=== PATIENT | male | born 1940 | race Caucasian/White ===

== ENCOUNTER → 2016-04-21 | Outpatient (CLI) | payer OTHER ==
--- NOTE | 2016-04-21 16:46 | NM ---
Nuclear Medicine Whole Body Bone Scan Clinical Indications: Left hip pain. Evaluate for loosening. Comparison: Plain radiographs of the hip from April 21, 2016. Technique: 22.1 mCi technetium 99m MDP were injected intravenously. Delayed images of the skeleton were obtained in anterior and posterior projections. Findings: Activity is normally distributed throughout the skeleton. There is no convincing evidence of metastatic disease. Some degenerative changes are noted in the shoulder on the right external manu brial joints, in the elbows, wrists, and knees. There is symmetric increased activity around the tota l hip arthroplasty on the left. This finding can be seen for up to one year post placement. Impression: Symmetric activity around the prosthesis is indeterminate. This prosthesis was placed Fe 2015 and is less than a year old.
--- NOTE | 2016-04-21 16:51 | DX ---
Left Hip, 2 Views Clinical indication: Evaluate for loosening. Comparison: Plain radiograph September 02, 2015, May 27, 2015, bone scan from April 21, 2016. Findings: Left total hip arthroplasty appears in anatomic alignment without evidence of loosening. Davis rgical clips are noted in the pelvis. Moderate degenerative changes are present in the SI joints in t he right hip joint. Impression: No convincing evidence of loosening. Left total hip arthroplasty in anatomic position.
== END ==
LOC: FIMAGING 11:59
PROVIDERS: ATTEND Orthopaedic Surgery
DX: Z96.642 Presence of left artificial hip joint (principal)
CPT/HCPCS: 73502; 78306; A9503

== ENCOUNTER → 2016-05-14 | Day surgery (SDC) | payer OTHER ==
[~2016-05-14] MED LIST: PROPOFOL/EMULSION 500 MG/50 ML BOTTLE IV ONE
[2016-05-14 09:53] VITALS: RESP 16; TEMP 97.5; O2SAT 95
[2016-05-14 10:01] VITALS: BP 154/98; PULSE 61
--- NOTE | 2016-05-14 11:37 | EDPHY ---
H & P Stated Complaint: Needs to have esophageal ring dilated; states unable to swallow fluids Time Seen by Provider: 05/14/16 10:09 - Personal History Current Tetanus Diphtheria and Acellular Pertussis (TDAP): Yes Tetanus Vaccine Date: 2005 - Medical/Surgical History Hx Asthma: No Hx Chronic Respiratory Disease: Yes Hx Diabetes: No Hx Cardiac Disease: No Hx Renal Disease: No Hx Cirrhosis: No Hx Alcoholism: No Hx HIV/AIDS: No Hx Splenectomy or Spleen Trauma: No Other PMH: V tach; TIA; depression;GERD; thyroidectomy; hyperparathyroidism, perennial rhinitis, obstructive sleep apnea; moderate hearing loss, astigmatism ; Lung CA; left lower lung lobectomy; wide aortic valve; Fibrous ring base of esophagus - Social History Smoking Status: Never smoked Constitutional: Initial Vital Signs Temperature (C) 36.4 C 05/14/16 09:46 Heart Rate 62 05/14/16 09:46 Respiratory Rate 16 05/14/16 09:46 Blood Pressure 161/100 H 05/14/16 09:46 O2 Sat (%) 95 05/14/16 09:46 O2 Delivery Mode Room Air Allergies/Adverse Reactions: venom-wasp [Wasp Venom] Allergy (Severe, Verified 05/14/16 09:52) Anaphylaxis Home Medications: Medication Instructions Recorded Clopidogrel Bisulfate [Plavix (*)] 75 mg PO DAILY 11/29/14 Metoprolol Succinate Xr [Toprol Xl 50 mg PO DAILY 11/29/14 50 mg (*)] Omeprazole [Prilosec 20 mg] 20 mg PO HS 11/29/14 Atorvastatin Calcium [Lipitor 20 20 mg PO HS #0 tab 05/18/15 mg (*)] Fluticasone Nasal [Flonase Nasal 2 sprays EACHNARE DAILY #0 mdi 05/18/15 [place]] Levothyroxine [Synthroid 112 mcg 112 mcg PO HS #0 tab 05/18/15 (*)] DULoxetine [Cymbalta 30 MG (*)] 30 mg PO 05/14/16 Medical Decision Making ED Course/Re-evaluation: CHIEF COMPLAINT: Esophageal obstruction HISTORY OF PRESENT ILLNESS: The patient is a 76 y/o male, with a history of Schatzki's ring, complaining of possible esophageal obstruction since dinner last night. He ate tuna and rice last night and within a few hours vomited. He was unable to swallow water throughout the night and unable to eat bread this morning. He has not been able to swallow his saliva since onset. He denies pain , fever, or other complaints. He has required esophageal dilations 3-4 times previously for these symptoms with the most recent in 2010. REVIEW OF SYSTEMS: A 10 point review of systems was performed and is negative with the exception of the elements mentioned in the history of present illness. PHYSICAL EXAM: General Appearance: Alert, well hydrated, appropriate, and non-toxic appearing. Head: Atraumatic without scalp tenderness or obvious injury Eyes: Pupils equal, round, reactive to light and accommodation, EOMI, no trauma , no injection. Ears: Clear bilaterally, no perforation, normal landmarks Nose: Atraumatic, no rhinorrhea, clear. Throat: There is no erythema or exudates, no lesions, normal tonsils, mucus membranes moist. Neck: Supple, 2+ carotid upstroke, non-tender, no lymphadenopathy. Respiratory: No retractions, no distress, no wheezes, and no accessory muscle use. Lungs are clear to auscultation bilaterally. Cardiovascular: Regular rate and rhythm, no murmurs, rubs, or gallops. Bilateral carotid, radial, dorsalis pedis, and posterior tibial pulses intact. Good capillary refill all extremities. Gastrointestinal: Abdomen is soft, non-tender, non-distended, no masses, no rebound, no guarding, no peritoneal signs. Musculoskeletal: Normal active ROM of all extremities, atraumatic. Neurological: Alert, appropriate, and interactive. The patient has normal DTRs and non-focal cranial nerves, motor, sensory, and cerebellar exam. Skin: No rashes, good turgor, no nodules on palpation. PAST MEDICAL HISTORY: Schatzki's ring PAST SURGICAL HISTORY: Multiple esophageal dilations SOCIAL HISTORY: . GI: Dr. Meyer DIFFERENTIAL DIAGNOSIS: The differential diagnosis for the patient's included but was not limited to MEDICAL DECISION MAKING: This is a 76 y/o male with a history of Schatzki's ring presenting with inability to swallow without vomiting for the last 12-18 hours. He has vomited every time he's tried swallowing food or water. He cannot swallow his saliva. He has required dilation previously for these symptoms. Plan to consult his GI, Dr. Meyer. 1030: Consulted with Dr. Meyer, patient's GI. He will evaluate patient in the ED and plans to take him to endoscopy. Departure - Departure Disposition: [facility] Inpatient Acute Clinical Impression: Foreign body in esophagus Qualifiers: Encounter type: initial encounter Qualifier Code: (T18.108A) Unspecified foreign body in esophagus causing other injury, initial encounter Condition: Good Report Scribed for: Juve Diaz Report Scribed by: Yecenia Cantu Date of Report: 05/14/16 Time of Report: 11:37
--- NOTE | 2016-05-14 12:35 | GPN ---
[f rep st] PROCEDURE NOTE PROCEDURE PERFORMED: Gastroscopy with food disimpaction and balloon dilation. INDICATIONS: The patient is a 76-year-old male with history of recurrent food impactions due Schatzk i ring, last dilated in 2010. He is on maintenance Nexium. Last night, swallowed some tuna and rice and felt it impact. It has been unable to be cleared. He presents for emergent endoscopy to disimp act the food and treat as needed. DESCRIPTION OF PROCEDURE: After proper consent was obtained, the patient was placed under general an esthesia with intubation for airway protection. His ASA class was III. Video gastroscope was introduced through the mouth and into the esophagus, where a large amount of fo od was noted. This was gently nudged into the stomach. The esophagus was then washed down, and a Sc hatzki ring was identified. It was approximately 18 mm in diameter. The stomach and duodenum were inspected. They appeared normal. A 20 mm balloon was placed across the ring and dilated maximally with some minimal superficial disrup tion noted. At this point, instrument was removed. The patient tolerated the procedure well, and was returned to recovery in stable condition. IMPRESSION: Schatzki ring with food impaction, however, a large food bolus may have contributed to t his episode. RECOMMENDATIONS: The patient will be on a liquid diet today, advanced as tolerated. He can continue all his other medications. Would repeat the procedure p.r.n. further impactions. /[id number]/MODL
== END | disposition home or self-care (01) ==
LOC: FSGY 11:22
PROVIDERS: ATTEND Internal Medicine Gastroenterology
PROC: 0D758DZ Dilation of Esophagus with Intraluminal Device, Via Natural or Artificial Opening Endoscopic (ICD-10-PCS; principal; 2016-05-14 11:22)
PROC: 0DC58ZZ Extirpation of Matter from Esophagus, Via Natural or Artificial Opening Endoscopic (ICD-10-PCS; principal; 2016-05-14 11:22)
DX: T18.120A Food in esophagus causing compression of trachea, initial encounter (principal); K22.2 Esophageal obstruction
CPT/HCPCS: 43249; 99285; J2704

== ENCOUNTER → 2016-07-11 | Outpatient (CLI) | payer OTHER ==
[~2016-07-11] MED LIST changes: +IOPAMIDOL (ISOVUE-300) 100 ML BTL IV ONE; -PROPOFOL/EMULSION 500 MG/50 ML BOTTLE IV ONE
[2016-07-11 16:33] LABS: CREATININE 0.9 mg/dL (0.7-1.3); GLOMERULAR FILTRATION RATE > 60
== END ==
LOC: FIMAGING 15:36
PROVIDERS: ATTEND Surgery
DX: R91.8 Other nonspecific abnormal finding of lung field (principal); Z85.118 Personal history of other malignant neoplasm of bronchus and lung; I71.2 Thoracic aortic aneurysm, without rupture; K80.20 Calculus of gallbladder without cholecystitis without obstruction; N28.1 Cyst of kidney, acquired
CPT/HCPCS: 71260; Q9967

== ENCOUNTER → 2017-01-08 | Outpatient (CLI) | payer OTHER | LOC: BMCIMAGING 14:41 | PROVIDERS: ATTEND Internal Medicine Endocrinology, Diabetes & Metabolism | DX: Z13.820 Encounter for screening for osteoporosis (principal); M85.89 Other specified disorders of bone density and structure, multiple sites; E21.3 Hyperparathyroidism, unspecified ==

== ENCOUNTER → 2017-09-29 | Outpatient (CLI) | payer OTHER | LOC: BMCIMAGING 12:29 | PROVIDERS: ATTEND Family Medicine | DX: M79.672 Pain in left foot (principal) ==

== ENCOUNTER 2018-01-01 13:09 | Day surgery (SDC) | payer OTHER ==
[2018-01-01] MEDS ORDERED: diphenhydrAMINE 25 MG CAP PO ONE (13:12)
[2018-01-01] MEDS ORDERED: BACITRACIN IRRIGATION/NS 50,000 UNITS/1,000 ML BTL IRR ONE (13:12)
[2018-01-01] MEDS ORDERED: ceFAZolin 2 GM/DEXTROSE 100 ML IV ONE (13:12)
[2018-01-01] MEDS ORDERED: DIAZEPAM 5 MG TAB PO ONE (13:12)
[2018-01-01] MEDS ORDERED: NS 1,000 ML IV ONE (13:12)
[2018-01-01 13:55] LABS: PLATELET COUNT 210 10^3/uL (150-400)
[2018-01-01 14:06] LABS: INR 1.03 (0.83-1.16); PROTIME(PATIENT) 13.7 SEC (12.0-15.0)
[2018-01-01] MEDS ORDERED: LIDOCAINE 1% 300 MG/30 ML SDV ONE (14:46)
[2018-01-01] MEDS ORDERED: BUPIVACAINE 0.75% 10 ML SDV ONE ×2 (14:46→15:11)
--- NOTE | 2018-01-01 14:49 | PDGENHP ---
History & Physical Chief Complaint: vt Relevant Physical Exam: s1s2 irreg. cta. ao3 Cardiorespiratory Assessment: freq pvc, and vt - sp icd. icd at [facility], for generator change. results of echo d.w. him - moderate AI
--- NOTE | 2018-01-01 14:52 | PDANEPAE ---
ANE History of Present Illness icd change ANE Past Medical History - Cardiovascular History Hx Hypertension: No Hx Arrhythmias: Yes Hx Chest Pain: No Hx Coronary Artery / Peripheral Vascular Disease: No Hx CHF / Valvular Disease: Yes Cardiovascular History Comment: VTACH. BICUSPID AORTIC VALVE, MILD INSUFFICIENCY. FREQUENT PVC. TIA 09/2012 - Pulmonary History Hx COPD: No Hx Asthma/Reactive Airway Disease: No Hx Recent Upper Respiratory Infection: No Hx Oxygen in Use at Home: No Hx Sleep Apnea: Yes Pulmonary History Comment: KAVON, MUST SLEEP ON SIDE. BRONCHOSPASM WITH EXERCISE. HX LUNG CA, L UPPER LOBECTOMY - Neurologic History Hx Cerebrovascular Accident: No Hx Seizures: No Hx Dementia: No Neurologic History Comment: TIA 09/2012 - Endocrine History Hx Diabetes: No Endocrine History Comment: HYPERPARATHYROIDISM. THYROID NODULE - Renal History Hx Renal Disorders: No Renal History Comment: HX PROSTATE CA, PROSTATECTOMY - Liver History Hx Hepatic Disorders: No - Neurological & Psychiatric Hx Hx Neurological and Psychiatric Disorders: No Neurological / Psychiatric History Comment: DEPRESSION - Cancer History Hx Cancer: Yes Cancer History Comment: PROSTATE, LUNG - Congenital Disorder History Hx Congenital Disorders: No Congenital History Comment: SCOLIOSIS - GI History Gastrointestinal History Comment: MILD DIFFICULTY SWALLOWING. GERD - Other Health History Other Health History: HEARING LOSS. OSTEOARTHRITIS HIPS. BRUISE EASILY. LEG CRAMPS - Chronic Pain History Chronic Pain: Yes - Surgical History Prior Surgeries: THYROIDECTOMY 01/2013. L UPPER LOBECTOMY CA 03/2011. RADICAL PROTATECTOMY 1995. R SCAPHOID BONE CYST REMOVED 2002 ANE Review of Systems Review of Systems: - Exercise capacity Exercise capacity: >=4 METS - Pacemaker Date Pacemaker Last Checked: 04/13/2015 ANE Patient History - Allergies Allergies/Adverse Reactions: venom-wasp [Wasp Venom] Allergy (Severe, Verified 05/14/16 09:52) Anaphylaxis - Home Medications Home medications: home medication list seen and reviewed Home Medications: Clopidogrel Bisulfate [Plavix (*)] 75 mg PO DAILY 11/29/14 [Last Taken 01/01/18 06:00] Metoprolol Succinate Xr [Toprol Xl 50 mg (*)] 50 mg PO DAILY 11/29/14 [Last Taken 01/01/18 06:00] Omeprazole [Prilosec 20 mg] 20 mg PO HS 11/29/14 [Last Taken 01/01/18 06:00] DULoxetine [Cymbalta 30 MG (*)] 30 mg PO 05/14/16 [Last Taken 01/01/18 08:00] - Anes Hx Anes Hx: no prior problems - Smoking Hx Smoking Status: Never smoked ANE Labs/Vital Signs - Labs Result Diagrams: 01/01/18 13:30 01/01/18 13:30 - Vital Signs Height: 170.18 cm Weight: 74.843 kg ANE Physical Exam - Airway Mallampati Score: Class 2 - Pulmonary Pulmonary: no respiratory distress - Cardiovascular Cardiovascular: regular rate and rhythym - ASA Status ASA Status: III ANE Anesthesia Plan Anesthesia Plan: GA w LMA
[2018-01-01] MEDS ORDERED: ONDANSETRON 4 MG/2 ML VIAL ONE (14:54)
[2018-01-01] MEDS ORDERED: LIDOCAINE 2% 5 ML SDV ONE (14:54)
[2018-01-01] MEDS ORDERED: KETOROLAC 30 MG/1 ML SDV ONE (14:54)
[2018-01-01] MEDS ORDERED: DEXAMETHASONE 4 MG/ML VIAL ONE (14:54)
[2018-01-01] MEDS ORDERED: PROPOFOL 200 MG/20 ML VIAL ONE (14:54)
[2018-01-01] MEDS ORDERED: fentaNYL 100 MCG/2 ML INJ ONE (14:54)
[2018-01-01] MEDS ORDERED: ePHEDrine SULFATE 25 MG/5 ML SYR ONE (15:19)
[2018-01-01] MEDS ORDERED: PHENYLEPHRINE HCL 100 MCG/ML SYR ONE (15:26)
--- NOTE | 2018-01-01 16:03 | EPPROC ---
Electrophysiology Procedure Note: PROCEDURE PERFORMED: 1. Explantation of an A-V Implantable Cardioverter Defibrillator 2. Implantation of an A-V Implantable Cardioverted Defibrillator 3. EP study induction of ventricular fibrillation and defibrillation testing INDICATION: ICD Generator at [facility] CPVT PROCEDURE NOTE: Patient presented to the cardiac catheterization laboratory in a fasting, postabsorptive state. Dr. Belcher administered LMA. The L infraclavicular area was prepped and draped in the usual sterile fashion. Lidocaine plus bupivacaine was used for local anesthesia. Using a combination of blunt and sharp dissection and electrocautery, the dissection was carried down to the prepectoral fascia and the existing ICD pocket was opened. The ICD generator was disconnected from the leads and the lead thresholds and impedance were checked. The ICD pocket was copiously irrigated with antibiotic solution. The pocket was again inspected for any bleeding. The leads were attached to the ICD securely. The ICD was inserted into the pocket and secured in place with a nonabsorbable suture. Defibrillation testing was not performed. The ICD pocket was closed in 3 layers with absorbable monocryl sutures and josue. Appropriate dressing was applied. The patient left the cardiac catheterization laboratory in stable condition. Serial Numbers: 1. Implanted Device: Fortify Assura [id number] 2. Ventricular Lead: Medtronic [id number] Stimulation Thresholds & Impedance Measurements: 1. Ventricular Lead R >12 mV 0.75 V 0.5 ms 480 ms Pacing Parameters: 1. Pacing mode: VVI 2. Lower rate: 30 ppm Tachycardia therapy parameters: VF zone : Detection 187 bpm, ATP while charging First therapy 36 Joule Subsequent therapies 40 Joule VT zone : Monitor zone 150 bpm Patient Problems: Problems Problem Status Onset Ventricular tachycardia Acute Transient ischemic attack Active Hyperparathyroidism Acute Thyroid neoplasm Acute
[2018-01-01] MEDS ORDERED: fentaNYL 100 MCG/2 ML INJ IVP PRN (16:06)
[2018-01-01] MEDS ORDERED: HYDROCODONE/APAP 5/325 TAB PO PRN (16:06)
[2018-01-01] MEDS ORDERED: ONDANSETRON 4 MG/2 ML VIAL IVP PRN (16:06)
[2018-01-01] MEDS ORDERED: NALOXONE HCL 0.4 MG/ML INJ IVP PRN (16:06)
--- NOTE | 2018-01-01 16:06 | POSTANESTH ---
Post Anesthetic Evaluation Cardiovascular Status: Normal, Stable Respiratory Status: Normal, Stable Level of Consciousness/Mental Status: Can Participate in Eval Pain Control: Adequate, Prn Tx Ordered Nausea/Vomiting Control: Adequate, Prn Tx Ordered Complications Possibly Related to Anesthesia: None Noted
--- NOTE | 2018-01-03 11:49 | CPEKG ---
Test Reason : OPEN Blood Pressure : / mmHG Vent. Rate : 057 BPM Atrial Rate : 056 BPM P-R Int : 189 ms QRS Dur : 093 ms QT Int : 474 ms P-R-T Axes : 046 -15 088 degrees QTc Int : 462 ms Sinus rhythm Ventricular bigeminy Borderline left axis deviation Nonspecific T abnormalities, lateral leads LVH Confirmed by Ruddy Stone ([id number]) on 01/03/2018 11:49:09 AM Referred By: Confirmed By:Ruddy Stone
== END 2018-01-01 18:20 | disposition home or self-care (01) ==
LOC: FCATH 13:09
PROVIDERS: ATTEND Internal Medicine Cardiovascular Disease
DX: T82.111A Breakdown (mechanical) of cardiac pulse generator (battery), initial encounter (principal); I47.2 Ventricular tachycardia; I71.2 Thoracic aortic aneurysm, without rupture; E21.3 Hyperparathyroidism, unspecified; E04.1 Nontoxic single thyroid nodule; Z85.46 Personal history of malignant neoplasm of prostate
CPT/HCPCS: C1722; J0690; J1100; J1885; J2370; J2405; J2704; J3010

== ENCOUNTER 2018-03-16 14:29 | Emergency (ER) | payer OTHER ==
[2018-03-16] MEDS ORDERED: NS 500 ML IV ONE (16:22)
[2018-03-16 16:28] LABS: PLATELET COUNT 234 10^3/uL (150-400)
--- NOTE | 2018-03-16 16:37 | EDPHY ---
H & P Time Seen by Provider: 03/16/18 16:20 HPI/ROS: HPI Slow heart rate. From Urgent Care. 78-year-old male by private vehicle. He comes from the [facility]. His was seen in the emergency department yesterday evening and diagnosed with pneumonia. She was admitted to the hospital and is here presently. He was concerned he might have pneumonia although he denies fever, cough or shortness of breath. He thought that he should get a chest x-ray so he went to the urgent care where he thought it would be cheaper. While at the urgent care before he got the chest x-ray did an EKG which showed a narrow complex sinus rhythm with a rate of 59. They sent him here to the emergency department because they felt his heart rate was too slow. The patient states that he feels fine. He denies any palpitations. No chest pain. No shortness of breath. No lightheadedness or fatigue. ROS: Constitutional: No fever, no chills. No weakness. As above. Eyes: No discharge. No changes in vision. ENT: No sore throat. No nasal congestion or rhinorrhea. Respiratory: No cough. No shortness of breath. Cardiac: No chest pain, no palpitations. Gastrointestinal: No abdominal pain, no vomiting, no diarrhea. Genitourinary: No hematuria. No dysuria or increased frequency with urination. Musculoskeletal: No back pain. No neck pain. No myalgias or arthralgias. Skin: No rashes. Neurological: No headache. No focal weakness or altered sensation. Past medical history: Ventricular tachycardia. He has an AICD, his artificial teeth inspector is Dr. Underwood. Depression, GERD, thyroidectomy, hyperparathyroidism, obstructive sleep apnea, moderate hearing loss, lung cancer, left lower lung lobectomy, esophageal problems. Social history: . His is currently an inpatient here at the hospital. Nonsmoker. No alcohol. Physical Exam: General Appearance: Alert, no distress. This patient is responding to questions appropriately and in full sentences. This patient appears well- hydrated and well-nourished. Eyes: Pupils equal and round no pallor or injection. No lid edema, erythema or injection. Respiratory: There are no retractions, lungs are clear to auscultation with good air movement bilaterally. Left upper chest wall defibrillator. No cough, no tachypnea. Cardiovascular: Regular rate and rhythm. No murmur appreciated. Gastrointestinal: Abdomen is soft and nontender, no masses, bowel sounds normal. No focal tenderness at McBurney's point. No Ford sign. Neurological: Motor sensory function is grossly intact. Cranial nerves are normal. Gait is normal. Skin: Warm and dry, no rashes. Musculoskeletal: Neck is supple and nontender. Extremities are symmetrical. All joints range without pain or impingement. Psychiatric: No agitation. No depression. Database: EKG: EKG time is 3:10 p.m.: EKG shows a narrow complex sinus rhythm with ventricular bigeminy ventricular rate of 88. No ST, T-wave changes indicative of ischemic or injury pattern. Interpreted by me. His EKG from Urgent Care was reviewed as well. This showed intermittent PVCs and a narrow complex sinus rhythm with ventricular rate of 59. Imaging: Procedures: Emergency department course: Triage vital signs reviewed. He is mildly hypertensive. Vital signs otherwise normal. He is afebrile. His patient monitor shows a narrow complex sinus rhythm with ventricular rate of 62 currently. I discussed workup in the emergency department including blood work. The patient declines this. I feel this is reasonable. He is asymptomatic. He feels comfortable going home and I feel he is safe for discharge. He is currently taking metoprolol. He has been instructed to continue his medications as prescribed by his artificial teeth inspector Dr. Underwood. Follow-up and return to emergency department precautions reviewed with him. All of his questions were answered. He was discharged from the emergency department in good condition. Differential Diagnosis: The differential diagnosis on this patient includes but is not limited to PVCs, ventricular bigeminy. Pulmonary embolism, pneumonia, acute coronary syndrome, ventricular tachycardia unlikely. This represents a partial list of diagnoses considered. These considerations are based on history, physical exam, past history, reassessment and diagnostic testing. Smoking Status: Never smoked Constitutional: Initial Vital Signs Temperature (C) 36.3 C 03/16/18 14:32 Heart Rate 60 03/16/18 14:32 Respiratory Rate 18 03/16/18 14:32 Blood Pressure 146/70 H 03/16/18 14:32 O2 Sat (%) 95 03/16/18 14:32 O2 Delivery Mode Room Air Allergies/Adverse Reactions: venom-wasp [Wasp Venom] Allergy (Severe, Verified 03/16/18 14:30) Anaphylaxis Home Medications: Medication Instructions Recorded Clopidogrel Bisulfate [Plavix (*)] 75 mg PO DAILY 11/29/14 Metoprolol Succinate Xr [Toprol Xl 50 mg PO DAILY 11/29/14 50 mg (*)] Omeprazole [Prilosec 20 mg] 20 mg PO HS 11/29/14 Atorvastatin Calcium [Lipitor 20 20 mg PO HS #0 tab 05/18/15 mg (*)] Fluticasone Nasal [Flonase Nasal 2 sprays E[place]NARE DAILY #0 mdi 05/18/15 [place]] Levothyroxine [Synthroid 112 mcg 112 mcg PO HS #0 tab 05/18/15 (*)] DULoxetine [Cymbalta 30 MG (*)] 30 mg PO 05/14/16 Medical Decision Making - Data Points Laboratory Results: Laboratory Results 03/16/18 15:10 03/16/18 03/16/18 15:10 15:10 WBC 10.18 10^3/uL H 10^3/uL (3.80-9.50) RBC 5.14 10^6/uL 10^6/uL (4.40-6.38) Hgb 16.8 g/dL g/dL (13.7-17.5) Hct 48.6 % % (40.0-51.0) MCV 94.6 fL fL (81.5-99.8) MCH 32.7 pg pg (27.9-34.1) MCHC 34.6 g/dL g/dL (32.4-36.7) RDW 13.1 % % (11.5-15.2) Plt Count 234 10^3/uL 10^3/uL (150-400) MPV 9.6 fL fL (8.7-11.7) Neut % (Auto) 58.2 % % (39.3-74.2) Lymph % (Auto) 24.0 % % (15.0-45.0) [place] % (Auto) 10.1 % % (4.5-13.0) Eos % (Auto) 5.6 % % (0.6-7.6) Baso % (Auto) 1.5 % % (0.3-1.7) Nucleat RBC Rel Count 0.0 % % (0.0-0.2) Absolute Neuts (auto) 5.93 10^3/uL 10^3/uL (1.70-6.50) Absolute Lymphs (auto) 2.44 10^3/uL 10^3/uL (1.00-3.00) Absolute Monos (auto) 1.03 10^3/uL H 10^3/uL (0.30-0.80) Absolute Eos (auto) 0.57 10^3/uL H 10^3/uL (0.03-0.40) Absolute Basos (auto) 0.15 10^3/uL H 10^3/uL (0.02-0.10) Absolute Nucleated RBC 0.00 10^3/uL 10^3/uL (0-0.01) Immature Gran % 0.6 % % (0.0-1.1) Immature Gran # 0.06 10^3/uL 10^3/uL (0.00-0.10) Sodium Pending Potassium Pending Chloride Pending Carbon Dioxide Pending Anion Gap Pending BUN Pending Creatinine Pending Estimated GFR Pending Glucose Pending Calcium Pending Departure - Departure Disposition: Home, Routine, Self-Care Clinical Impression: PVCs (premature ventricular contractions), Ventricular bigeminy Condition: Good Instructions: Heart Palpitations (ED) Additional Instructions: Read and follow provided instructions. Keep yourself well hydrated. Follow-up with your primary care physician or artificial teeth inspector, Dr. Underwood on Sunday or Sunday of this week for re-evaluation as discussed. Continue taking your medication as prescribed. Return to the emergency department for worsening chest pain, shortness of breath , palpitations, lightheadedness, weakness or other serious concerns. Referrals: Herminio Rutledge MD [Primary Care Provider] - As per Instructions Donnie Underwood MD [Medical Doctor] - As per Instructions
[2018-03-16 17:09] VITALS: BP 143/71
--- NOTE | 2018-03-16 18:19 | CPEKG ---
Test Reason : OPEN Blood Pressure : / mmHG Vent. Rate : 088 BPM Atrial Rate : 035 BPM P-R Int : 171 ms QRS Dur : 093 ms QT Int : 439 ms P-R-T Axes : 073 -24 116 degrees QTc Int : 532 ms Sinus rhythm Ventricular bigeminy Borderline left axis deviation Abnormal R-wave progression, early transition Confirmed by Dagoberto Phipps ([id number]) on 03/16/2018 6:18:41 PM Referred By: Confirmed By:Dagoberto Phipps
== END 2018-03-16 17:10 | disposition home or self-care (01) ==
DX: I49.3 Ventricular premature depolarization (principal); E86.9 Volume depletion, unspecified; Z95.810 Presence of automatic (implantable) cardiac defibrillator

== ENCOUNTER → 2018-03-18 | Outpatient (CLI) | payer OTHER ==
[~2018-03-18] MED LIST changes: -IOPAMIDOL (ISOVUE-300) 100 ML BTL IV ONE; +IOPAMIDOL (ISOVUE-300) 100 ML BTL ONE
== END ==
LOC: FIMAGING 08:54
PROVIDERS: ATTEND Internal Medicine
DX: R91.1 Solitary pulmonary nodule (principal); Z90.2 Acquired absence of lung [part of]; Z85.118 Personal history of other malignant neoplasm of bronchus and lung
CPT/HCPCS: 71260; Q9967

== ENCOUNTER → 2018-05-29 | Outpatient (CLI) | payer OTHER | LOC: BMCIMAGING 09:25 | PROVIDERS: ATTEND Physician Assistant | DX: M11.222 Other chondrocalcinosis, left elbow (principal); M25.722 Osteophyte, left elbow ==

== ENCOUNTER → 2018-07-26 | Outpatient (CLI) | payer OTHER ==
[~2018-07-26] MED LIST changes: -IOPAMIDOL (ISOVUE-300) 100 ML BTL ONE; +IOPAMIDOL (ISOVUE-370) 150 ML BTL IV ONE; +LIDOCAINE 1% 300 MG/30 ML SDV ONE
== END ==
LOC: FIMAGING 10:34
PROVIDERS: ATTEND Physician Assistant
PROC: 3E0U3KZ Introduction of Other Diagnostic Substance into Joints, Percutaneous Approach (ICD-10-PCS; principal; 2018-07-26)
DX: M19.022 Primary osteoarthritis, left elbow (principal)
CPT/HCPCS: 24220; 73085; 73201; Q9967